=== PATIENT | female | born 1990 | race Two or more races ===

== ENCOUNTER 2018-09-04 14:03 | Emergency (ER) | payer OTHER ==
[~2018-09-04] VITALS: Ht 157.5 cm; Wt 68.0 kg
[~2018-09-04 14:03] MED LIST: PEPCID40 MG PO; ZOFRAN4 MG PO
[2018-09-04] MEDS ORDERED: PRENATA CHEWAB1 EACH (14:15)
== END 2018-09-04 18:50 | disposition home or self-care (01) ==
LOC: ER 14:03
DX: O21.0 Mild hyperemesis gravidarum (principal); O23.32 Infections of other parts of urinary tract in pregnancy, second trimester; E86.0 Dehydration; Z34.82 Encounter for supervision of other normal pregnancy, second trimester

== ENCOUNTER 2019-01-10 18:32 | Outpatient (CLI) | payer OTHER ==
[~2019-01-10 18:32] MED LIST changes: +PRENATA CHEWAB1 EACH
== END 2019-01-11 09:30 | disposition home or self-care (01) ==
LOC: OBS/DEL 18:32
DX: O60.03 Preterm labor without delivery, third trimester (principal)

== ENCOUNTER 2019-02-08 05:54 | Inpatient (IN) | payer OTHER ==
[~2019-02-08] VITALS: Ht 157.5 cm; Wt 83.5 kg
== END 2019-02-10 13:01 | disposition home or self-care (01) | DRG 798 ==
LOC: LDR 05:54 → O/R 18:32 → OB/GYN 20:33
PROVIDERS: ADMIT Obstetrics & Gynecology
PROC: 0UL70ZZ Occlusion of Bilateral Fallopian Tubes, Open Approach (ICD-10-PCS; 2019-02-08)
PROC: 10907ZC Drainage of Amniotic Fluid, Therapeutic from Products of Conception, Via Natural or Artificial Opening (ICD-10-PCS; 2019-02-08)
PROC: 3E033VJ Introduction of Other Hormone into Peripheral Vein, Percutaneous Approach (ICD-10-PCS; 2019-02-08)
PROC: 4A1HXCZ Monitoring of Products of Conception, Cardiac Rate, External Approach (ICD-10-PCS; 2019-02-08)
PROC: 10E0XZZ Delivery of Products of Conception, External Approach (ICD-10-PCS; principal; 2019-02-08 17:00)
DX: O80 Encounter for full-term uncomplicated delivery (principal); Z37.0 Single live birth; Z3A.39 39 weeks gestation of pregnancy; Z30.2 Encounter for sterilization

== ENCOUNTER 2019-09-10 06:00 | Day surgery (SDC) | payer OTHER ==
[2019-09-10] MEDS ORDERED: ULTRACET PO (09:43)
[2019-09-10] MEDS ORDERED: NEURONTIN600 M1 PO (09:44)
[2019-09-10] MEDS ORDERED: COLACE100 MG PO (09:45)
== END 2019-09-10 12:15 | disposition home or self-care (01) ==
LOC: CIR.AMB 06:00 → ADM 11:45 → CIR.AMB 11:45
PROVIDERS: ATTEND Surgery
DX: K43.0 Incisional hernia with obstruction, without gangrene (principal); Z20.828 Contact with and (suspected) exposure to other viral communicable diseases